=== PATIENT | female | born 1945 | race Two or more races ===

== ENCOUNTER 2019-05-24 12:29 | Inpatient (IN) | payer MEDICARE, MEDICAID ==
[~2019-05-24] VITALS: Ht 162.6 cm; Wt 97.5 kg
[2019-05-24] MEDS ORDERED: SODIUM CHLORIDE 0.9% 1000ML BAG (SEPSIS BOLUS) IV ONE (13:15)
[2019-05-24 14:32] LABS: BASOPHILS % 0.5 % (0.0-2.0); EOSINOPHILS % 0.7 % (0.0-5.0); HEMATOCRIT. 36.1 % (36.0-48.0); HEMOGLOBIN. 12.5 g/dL (12.0-16.0); LYMPHOCYTES % 7.2 % (20.0-50.0); MEAN CORPUSCULAR HEMOGLOBIN 31.1 pg (28.0-32.0); MEAN CORPUSCULAR VOLUME 90.1 fL (81.0-99.0); MEAN PLATELET VOLUME 9.1 fl (7.4-10.4); MONOCYTES % 4.1 % (2.0-8.0); NEUTROPHILS % 87.5 % (40.0-76.0); PLATELET 180 x1000/uL (130-400); RED BLOOD CELL COUNT 4.01 mill/uL (4.2-5.4); RED CELL DISTRIBUTION WIDTH 13.1 % (11.6-14.6)
[2019-05-24 14:38] LABS: CHLORIDE 86 mEq/L (98-107)
[2019-05-24 14:49] LABS: INR 3.9; PROTHROMBIN TIME 37.5 sec (9.6-11.0)
[2019-05-24] MEDS ORDERED: CEFTRIAXONE 1 G PREMIX 50 ML IV ONE (15:00)
[2019-05-24] MEDS ORDERED: ENOXAPARIN 40MG/0.4ML SYR SUBCUT SCH (16:30)
[2019-05-24] MEDS ORDERED: CLONIDINE 0.1MG TABLET PO PRN (16:30)
[2019-05-24] MEDS ORDERED: IPRATROPIUM/ALBUTEROL 0.5-3(2.5)MG/3ML NEB HHN PRN (16:30)
[2019-05-24] MEDS ORDERED: ACETAMINOPHEN 325MG TABLET PO PRN (16:30)
[2019-05-24] MEDS ORDERED: ONDANSETRON HCL 4MG/2ML INJ IV PRN (16:30)
[2019-05-24 17:21] LABS: CLARITY URINE CLEAR (CLEAR); COLOR URINE YELLOW (YELLOW); KETONES URINE NEGATIVE (NEGATIVE); LEUKOCYTE ESTERASE URINE 1+ (NEGATIVE); NITRITE URINE NEGATIVE (NEGATIVE); OCCULT BLOOD URINE NEGATIVE (NEGATIVE); PROTEIN URINE NEGATIVE (NEGATIVE); SPECIFIC GRAVITY URINE 1.005 (1.005-1.030); UROBILINOGEN URINE 0.2 E.U./dL (0.2-1.0)
[2019-05-24] MEDS ORDERED: IOHEXOL-300 100 ML BOTTLE ONE (20:30)
[2019-05-24 20:55] VITALS: BP 160/62
[2019-05-24 22:00] VITALS: BP 145/70
[2019-05-24] MEDS ORDERED: POTASSIUM CHLORIDE 20MEQ TABLET SR PO SCH (23:00)
[2019-05-24] MEDS: SODIUM CHLORIDE 0.9% 1,000 ML IV SCH (23:13)
[2019-05-25] VITALS (8 sets, daily range): BP systolic 127–160; BP diastolic 58–66
[2019-05-25 00:25] LABS: CREATINE KINASE 146 IU/L (26-192)
[2019-05-25 10:17] LABS: BASOPHILS % 0.5 % (0.0-2.0); EOSINOPHILS % 3.3 % (0.0-5.0); HEMATOCRIT. 33.7 % (36.0-48.0); HEMOGLOBIN. 11.5 g/dL (12.0-16.0); LYMPHOCYTES % 7.6 % (20.0-50.0); MEAN CORPUSCULAR VOLUME 90.6 fL (81.0-99.0); MEAN PLATELET VOLUME 9.3 fl (7.4-10.4); MONOCYTES % 4.2 % (2.0-8.0); NEUTROPHILS % 84.4 % (40.0-76.0); PLATELET 239 x1000/uL (130-400); RED BLOOD CELL COUNT 3.72 mill/uL (4.2-5.4); RED CELL DISTRIBUTION WIDTH 13.1 % (11.6-14.6)
[2019-05-25 10:21] LABS: CHLORIDE 99 mEq/L (98-107)
[2019-05-25 10:29] LABS: LDL CHOLESTEROL 73 mg/dL (5-100)
[2019-05-25 10:30] LABS: CREATINE KINASE 100 IU/L (26-192); T4 FREE 1.02 ng/dL (0.76-1.46)
[2019-05-25 10:31] LABS: HDL CHOLESTEROL 43 mg/dL (40-59)
[2019-05-25 10:52] LABS: BG BASE EXCESS -3.6 mmol/L (-2.0-2.0); BG CARBOXYHEMOGLOBIN 0.1 % (0.5-1.5); BG DEOXYHEMOGLOBIN 5.3 % (0.0-5.0); BG FRACTION INSPIRED OXYGEN 21; BG HCO3 ACT 20.6 mmol/L (22.0-26.0); BG METHEMOGLOBIN 0.1 % (0.0-1.5); BG OXYGEN SATURATION 94.7 % (92.0-98.5); BG OXYHEMOGLOBIN 94.5 % (94.0-97.0); BG PCO2 34.6 mmHg (35.0-45.0); BG PH 7.393 (7.350-7.450); BG PO2 74.9 mmHg (75.0-100.0); BG SAMPLE SITE RIGHT BRACHIAL; BG TOTAL HEMOGLOBIN 12.3 g/dL (12.0-18.0); BG VENT MODE ROOM AIR
[2019-05-25] MEDS ORDERED: POTASSIUM CHLORIDE 20MEQ TABLET SR PO NR (12:00)
[2019-05-25] MEDS ORDERED: MELO-106 PO (12:03)
[2019-05-25] MEDS ORDERED: PANT40TA4 PO (12:03)
[2019-05-25] MEDS ORDERED: TOPUD PO (12:03)
[2019-05-25] MEDS ORDERED: GABA-531 PO (12:03)
[2019-05-25] MEDS ORDERED: HYOS-16 SL (12:03)
[2019-05-25] MEDS ORDERED: CARB-31 PO (12:03)
[2019-05-25] MEDS ORDERED: SUCR1TAB PO (12:03)
[2019-05-25] MEDS ORDERED: TRAM150C25 PO (12:03)
[2019-05-25] MEDS ORDERED: IRBE1TAB43 PO (12:03)
[2019-05-25] MEDS: LEVOFLOXACIN 500MG PREMIX 100 ML IV SCH (13:52)
[2019-05-25] MEDS: SODIUM CHLORIDE 0.9% 1,000 ML IV SCH ×2 (13:53→18:34)
[2019-05-25] MEDS ORDERED: CLONIDINE 0.1MG TABLET PO PRN (14:15)
[2019-05-25] MEDS ORDERED: DIPHENHYDRAMINE 50MG/ML VIAL IV PRN (14:15)
[2019-05-25] MEDS ORDERED: LACTULOSE 20G/30ML UDC PO PRN (21:00)
[2019-05-25 21:12] LABS: PARTIAL THROMBOPLASTIN TIME 31.9 sec (23.4-31.0); PROTHROMBIN TIME 10.7 sec (9.6-11.0)
[2019-05-25 21:24] LABS: PHOSPHORUS 1.9 mg/dL (2.5-4.9)
[2019-05-25] MEDS: HYDROCODONE/ACETAMINOPHEN 5/325MG TABLET PO PRN (21:43)
[2019-05-26] VITALS: BP 119/37
[2019-05-26 04:00] VITALS: BP 138/48
[2019-05-26 06:41] LABS: CHLORIDE 98 mEq/L (98-107)
[2019-05-26 06:42] LABS: BASOPHILS % 0.5 % (0.0-2.0); EOSINOPHILS % 5.2 % (0.0-5.0); HEMATOCRIT. 35.5 % (36.0-48.0); HEMOGLOBIN. 12.3 g/dL (12.0-16.0); LYMPHOCYTES % 12.7 % (20.0-50.0); MEAN CORPUSCULAR HEMOGLOBIN 31.5 pg (28.0-32.0); MEAN CORPUSCULAR VOLUME 90.8 fL (81.0-99.0); MEAN PLATELET VOLUME 9.2 fl (7.4-10.4); MONOCYTES % 6.9 % (2.0-8.0); NEUTROPHILS % 74.7 % (40.0-76.0); PLATELET 247 x1000/uL (130-400); RED BLOOD CELL COUNT 3.92 mill/uL (4.2-5.4); RED CELL DISTRIBUTION WIDTH 13.5 % (11.6-14.6)
[2019-05-26 08:00] VITALS: BP 130/76
[2019-05-26 09:47] LABS: PROTHROMBIN TIME 10.7 sec (9.6-11.0)
[2019-05-26 12:31] LABS: BG BASE EXCESS -3.9 mmol/L (-2.0-2.0); BG CARBOXYHEMOGLOBIN 0.1 % (0.5-1.5); BG DEOXYHEMOGLOBIN 3.9 % (0.0-5.0); BG FRACTION INSPIRED OXYGEN 21; BG HCO3 ACT 19.6 mmol/L (22.0-26.0); BG METHEMOGLOBIN 0.3 % (0.0-1.5); BG OXYGEN SATURATION 96.1 % (92.0-98.5); BG OXYHEMOGLOBIN 95.7 % (94.0-97.0); BG PCO2 30.7 mmHg (35.0-45.0); BG PH 7.422 (7.350-7.450); BG PO2 82.6 mmHg (75.0-100.0); BG SAMPLE SITE RIGHT BRACHIAL; BG TOTAL HEMOGLOBIN 11.7 g/dL (12.0-18.0); BG VENT MODE ROOM AIR
[2019-05-26] MEDS: HYDROCODONE/ACETAMINOPHEN 5/325MG TABLET PO PRN ×2 (13:31→18:42)
[2019-05-26] MEDS: SODIUM CHLORIDE 0.9% 1,000 ML IV SCH ×2 (13:33→22:05)
[2019-05-26] MEDS: LEVOFLOXACIN 500MG PREMIX 100 ML IV SCH (13:59)
[2019-05-26] MEDS: PANTOPRAZOLE SODIUM 40 MG/VIAL IV SCH (17:06)
[2019-05-26] MEDS ORDERED: IOHEXOL-350 100 ML BOTTLE ONE (18:56)
[2019-05-26 20:00] VITALS: BP 137/59
[2019-05-27] VITALS: BP 159/63
[2019-05-27 04:00] VITALS: BP 107/77
[2019-05-27 06:30] LABS: CHLORIDE 100 mEq/L (98-107)
[2019-05-27 06:41] LABS: BASOPHILS % 0.7 % (0.0-2.0); EOSINOPHILS % 6.3 % (0.0-5.0); HEMATOCRIT. 35.2 % (36.0-48.0); HEMOGLOBIN. 12.1 g/dL (12.0-16.0); LYMPHOCYTES % 17.9 % (20.0-50.0); MEAN CORPUSCULAR HEMOGLOBIN 31.2 pg (28.0-32.0); MEAN CORPUSCULAR VOLUME 90.5 fL (81.0-99.0); MEAN PLATELET VOLUME 8.8 fl (7.4-10.4); NEUTROPHILS % 70.1 % (40.0-76.0); PLATELET 303 x1000/uL (130-400); RED BLOOD CELL COUNT 3.88 mill/uL (4.2-5.4); RED CELL DISTRIBUTION WIDTH 13.3 % (11.6-14.6)
[2019-05-27 08:00] VITALS: BP 134/53
[2019-05-27] MEDS: PANTOPRAZOLE SODIUM 40 MG/VIAL IV SCH (08:19)
[2019-05-27 12:00] VITALS: BP 104/65
[2019-05-27] MEDS: SODIUM CHLORIDE 0.9% 1,000 ML IV SCH (12:04)
[2019-05-27] MEDS ORDERED: HYDR-4001 MT (14:17)
[2019-05-27] MEDS ORDERED: LEVO500T2 MT (14:17)
[2019-05-27 15:59] VITALS: BP 115/58
[2019-05-27 16:00] VITALS: BP 115/58
[2019-05-27] MEDS: LEVOFLOXACIN 500MG PREMIX 100 ML IV SCH (16:25)
[2019-05-28] MEDS ORDERED: LEVOFLOXACIN 500MG TABLET PO SCH (11:00)
== END 2019-05-27 18:30 | disposition home or self-care (01) | DRG 247 ==
LOC: ER 12:29 → 8WST 16:21 → EDBEDREQSVC 16:34 → EDBEDREQ 16:34 → ENRESERV 19:45 → 8WST 05-26 07:41
PROVIDERS: ADMIT Internal Medicine; ATTEND Internal Medicine
DX: K56.7 Ileus, unspecified (principal); G93.41 Metabolic encephalopathy; D68.9 Coagulation defect, unspecified; E87.1 Hypo-osmolality and hyponatremia; E66.01 Morbid (severe) obesity due to excess calories; F03.90 Unspecified dementia, unspecified severity, without behavioral disturbance, psychotic disturbance, mood disturbance, and anxiety; K83.8 Other specified diseases of biliary tract; K76.0 Fatty (change of) liver, not elsewhere classified; N39.0 Urinary tract infection, site not specified; E87.6 Hypokalemia; K44.9 Diaphragmatic hernia without obstruction or gangrene; T50.2X5A Adverse effect of carbonic-anhydrase inhibitors, benzothiadiazides and other diuretics, initial encounter; I10 Essential (primary) hypertension; G89.29 Other chronic pain; M54.9 Dorsalgia, unspecified; R55 Syncope and collapse; Z68.35 Body mass index [BMI] 35.0-35.9, adult; Z90.49 Acquired absence of other specified parts of digestive tract; Z87.19 Personal history of other diseases of the digestive system; Z79.899 Other long term (current) drug therapy; Y92.89 Other specified places as the place of occurrence of the external cause
CPT/HCPCS: 36415; 36600; 71045; 74018; 74174; 74177; 76700; 80048; 80061; 81003; 82140; 82375; 82533; 82550; 82805; 83036; 83605; 83735; 84100; 84145; 84439; 84443; 84484; 87804; 93005; 93970; 96361; 96365; 97162; 99291; C1893; C9113; J0696; J1200; J1956; J2405; J7030; Q9967